=== PATIENT | male | born 1995 | race Two or more races ===

== ENCOUNTER → 2024-10-29 | Outpatient (CLI) | payer OTHER ==
--- NOTE | 2024-10-29 18:27 | HMCIMG ---
EXAM: MR right Lower Extremity without IV contrast, Knee. CLINICAL HISTORY: PAIN TO KNEE TECHNIQUE: Multisequence, multiplanar magnetic resonance images of the right knee without intravenous contrast. Series acquired: 4 - AX T2 - TR: 4733.0 - TE: 98.4 - ET: 21.0 - Thk: 4.0 5 - AX T1 - TR: 688.0 - TE: 16.3 - ET: 4.0 - Thk: 4.0 6 - AX 2D MERGE - TR: 899.0 - TE: 14.9 - ET: 4.0 - Thk: 4.0 7 - COR PD - TR: 2098.0 - TE: 17.4 - ET: 9.0 - Thk: 3.0 8 - COR PD FS - TR: 2553.0 - TE: 17.5 - ET: 8.0 - Thk: 3.0 9 - COR 2D MERGE - TR: 882.0 - TE: 15.4 - ET: 4.0 - Thk: 3.1 10 - SAG PD - TR: 2415.0 - TE: 15.0 - ET: 8.0 - Thk: 3.0 CONTRAST: None. COMPARISON: None provided. FINDINGS: LIGAMENTS: ANTERIOR CRUCIATE: Intact. POSTERIOR CRUCIATE: Intact. LATERAL COLLATERAL: Intact. MEDIAL COLLATERAL: Intact. TENDONS: QUADRICEPS: Intact. PATELLAR: Intact. LATERAL GASTROCNEMIUS: Intact. MEDIAL GASTROCNEMIUS: Intact. ILIOTIBIAL BAND: Intact. POPLITEUS: Intact. BONES: No acute fracture or aggressive appearing osseous lesion. Bone marrow signal intensity is within normal limits. MUSCLES: Visualized muscles demonstrate normal girth and signal intensity. FLUID: Physiologic amount of joint fluid. CARTILAGE: Articular cartilage is well maintained. MENISCI: The medial and lateral menisci are intact. RETINACULA: The medial and lateral patellar retinacula are intact. IMPRESSION: Unremarkable right knee MRI. /[place]
== END | disposition home or self-care (01) ==
LOC: EEVIPCON 09:00 → RAH 09:05
PROVIDERS: ATTEND Family Medicine
DX: M25.561 Pain in right knee (principal)
CPT/HCPCS: 73721